=== PATIENT | female | born 1940 | race Caucasian/White ===

== ENCOUNTER 2018-04-13 09:10 | Emergency (ER) | payer OTHER ==
[~2018-04-13] VITALS: Ht 152.4 cm; Wt 63.0 kg
== END 2018-04-13 12:15 | disposition home or self-care (01) ==
LOC: ER 09:10
DX: S01.22XA Laceration with foreign body of nose, initial encounter (principal); W26.8XXA Contact with other sharp object(s), not elsewhere classified, initial encounter; Y93.01 Activity, walking, marching and hiking; Y92.480 Sidewalk as the place of occurrence of the external cause; Y99.8 Other external cause status

== ENCOUNTER 2018-04-17 08:09 | Outpatient (CLI) | payer OTHER | END 2018-04-17 08:43 | disposition home or self-care (01) | LOC: TOM 08:09 | DX: S02.2XXA Fracture of nasal bones, initial encounter for closed fracture (principal) ==